=== PATIENT | male | born 1995 | race Two or more races ===

== ENCOUNTER 2021-03-07 23:30 | Emergency (ER) | payer MEDICAID ==
[~2021-03-07] VITALS: Ht 190.5 cm; Wt 77.1 kg
--- NOTE | 2021-03-08 00:35 | NUR ---
PT BIBSELF C/O REDNESS ON TIP OF PENIS X2 MONTHS. PT AAOX4 BREATHING EVENLY AND UNLABORED. PT HAS BEEN USING LOTRIMIN LOTION, WITHOUT RELIEF. PT ATTACHED TO MONITOR AND POX. PT SKIN WARM, DRY, AND INTACT. PT GIVEN BLANKET AND CALL LIGHT WITHIN REACH
[2021-03-08] MEDS ORDERED: VORI200T4 PO (01:05)
[2021-03-08] MEDS ORDERED: FLUCONAZOLE (100 MG) 100 MG TABLET ONE (01:10)
--- NOTE | 2021-03-08 01:13 | NUR ---
Patient discharged to home in stable condition. Written and verbal after care instructions given. Patient verbalizes understanding of instruction. PT ambulatory with a steady gait
[2021-03-08 01:16] VITALS: BP 135/88
[2021-03-08] MEDS ORDERED: FLUCONAZOLE (100 MG) 100 MG TABLET PO ONE (01:30)
== END 2021-03-08 01:13 | disposition home or self-care (01) ==
LOC: ER 23:34
DX: N48.1 Balanitis (principal)

== ENCOUNTER 2025-01-02 09:09 | Emergency (ER) | payer MEDICAID ==
[~2025-01-02] VITALS: Ht 188 cm; Wt 71.7 kg
[~2025-01-02 09:09] MED LIST: VORI200T4 PO
[2025-01-02 09:22] VITALS: BP 141/85; TEMP 97.9
[2025-01-02 09:35] VITALS: O2SAT 99
== END 2025-01-02 09:39 | disposition home or self-care (01) ==
LOC: ER 09:17
DX: Z00.00 Encounter for general adult medical examination without abnormal findings (principal); Z79.899 Other long term (current) drug therapy